=== PATIENT | male | born 1945 | race Caucasian/White ===

== ENCOUNTER 2019-01-22 09:46 | Day surgery (SDC) | payer MEDICARE, OTHER ==
[~2019-01-22 09:46] MED LIST: ACETAMINOPHEN 1,000 MG/100 ML BTL IV ONE; CEFAZOLIN 2 Gram 2 GM/50 ML BAG IVPB ONE
[2019-01-22] MEDS ORDERED: NEOSTIGMINE 1 MG/1 ML,10ML VIAL IV ONE (09:47)
[2019-01-22] MEDS ORDERED: EPINEPHRINE 1 MG/ML AMPUL SQ ONE (09:47)
[2019-01-22] MEDS ORDERED: KETOROLAC 30 MG/ML VIAL IVP ONE (09:47)
[2019-01-22] MEDS ORDERED: HYDROMORPHONE HCL 2 MG/ML VIAL IV ONE (09:47)
[2019-01-22] MEDS ORDERED: ONDANSETRON HCL IV 4 MG/2 ML VIAL IVP ONE (09:47)
[2019-01-22] MEDS ORDERED: SEVOFLURANE 250 ML INH ONE (09:47)
[2019-01-22] MEDS ORDERED: MIDAZOLAM HCL 2MG/2ML VIAL IV ONE (09:47)
[2019-01-22] MEDS ORDERED: LIDOCAINE 2% MDV (20MG/ML) 20ML VIAL IV ONE (09:47)
[2019-01-22] MEDS ORDERED: GLYCOPYRROLATE 0.2 MG/ML ML IV ONE (09:47)
[2019-01-22] MEDS ORDERED: SUCCINYLCHOLINE 20 MG/ML 10ML IVP ONE (09:47)
[2019-01-22] MEDS ORDERED: BUPIVACAINE LIPOSOME 266MG/20ML VIAL IV ONE (09:47)
[2019-01-22] MEDS ORDERED: PROPOFOL 10 MG/ML VIAL IV ONE (09:47)
[2019-01-22] MEDS ORDERED: ROCURONIUM BROMIDE 50MG/5ML VIAL IV ONE (09:47)
[2019-01-22] MEDS ORDERED: BUPIVACAINE 0.5% W/EPI MPF 30 ML VIAL IVP ONE (09:47)
[2019-01-22] MEDS ORDERED: FENTANYL PF 100MCG/2ML VIAL IV ONE (09:47)
--- NOTE | 2019-01-24 17:57 | Operative Note ---
DATE OF SURGERY: 01/22/2019 PREOPERATIVE DIAGNOSES: 1. RIGHT SHOULDER ROTATOR CUFF TEAR. 2. AC JOINT ARTHROSIS. POSTOPERATIVE DIAGNOSES: 1. RIGHT SHOULDER ROTATOR CUFF TEAR. 2. AC JOINT ARTHROSIS. 3. PARTIAL TEAR OF BICEPS TENDON. PROCEDURE: 1. DIAGNOSTIC ARTHROSCOPY. 2. ARTHROSCOPIC ACROMIOPLASTY WITH SUBACROMIAL DECOMPRESSION. 3. ARTHROSCOPIC EXCISION OF THE DISTAL CLAVICLE, AC JOINT 1 CM. 4. ARTHROSCOPIC ROTATOR CUFF REPAIR. 5. ARTHROSCOPIC BICEPS TENOTOMY. SURGEON: RIC HARDIN M.D. ANESTHESIA: GENERAL ENDOTRACHEAL, JOSELUIS, TISH. COMPLICATIONS: NONE. ESTIMATED BLOOD LOSS: MINIMAL. OPERATIVE FINDINGS: A large retracted rotator cuff tear involving the supraspinatus and infraspinatus tendons. Subscap tendon partial articular tearing only slight otherwise, intact. Biceps tendon partially frayed and torn. AC joint arthrosis. COMPONENTS PLACED: One [employer] 5.5 mm Regenesorb anchor loaded with two #2 Ultrabraid sutures and one [employer] MultiFix anchor loaded with the four suture limbs from the first anchor. INDICATION FOR OPERATIONS: This is a 73-year-old male who has had persistent pain and dysfunction in the shoulder actually for several years. He had an injury recently and it was weaker and very painful and he cannot raise his arm up. He had a preoperative ultrasound, which revealed a rotator cuff tear and is scheduled for the procedures above. I explained the risks and benefits thoroughly in detail for the diagnoses and procedures including but not limited to infection, nerve injury, vessel injury, persistent pain, stiffness, numbness and tingling in his shoulder, retear of his rotator cuff, need for further procedures, and all of his questions were answered. Rehab and course were outlined and he agreed to proceed. PROCEDURE: The patient was brought to the O.R. and placed in the beach chair position. Antibiotics were given prior to surgery. General endotracheal anesthesia was induced. The right upper extremity was prepped and draped in sterile fashion. Prepped again with ChloraPrep after draped and time-out was performed. The glenohumeral joint, subacromial space, and AC joint were injected with 0.5% Marcaine with Epinephrine. A posterior arthroscopic portal was established 2 cm inferior and 1 cm medial to the posterolateral corner of the acromion. An anterior portal was established with the rotator interval. Diagnostic arthroscopy was performed. The biceps tendon was partially torn and frayed. The biceps anchor was normal. The posterior superior labrum was normal. Axillary recess was normal. The posterior inferior labrum was normal. Glenohumeral head and articular cartilage were normal. The undersurface of the rotator cuff was thoroughly inspected. There was no cuff superiorly. It was retracted to the glenoid rim and the entire supraspinatus and infraspinatus tendons. There was some cuff anteriorly just at the interval and posteriorly at the infraspinatus/teres minor junction. The superior and middle glenohumeral ligaments were intact. Subscap tendons partial articular fraying although very slight, otherwise intact. Anterior inferior labrum and glenohumeral ligament looks normal. Next, we inserted the anterior portal and debrided back some synovitis and some of the scarring around the cuff edges and identified our tear. We did an intra- articular release with the tissue ablator and released no more than 1 cm medial to the glenoid rim to the base of the coracoid releasing the coracohumeral ligament. Next, the anterior posterior subacromial portals were established. The tissue ablator was inserted in the anterior subacromial portal. Subacromial bursectomy was performed outlining the anterior lateral edge of the acromion. We released the coracoacromial ligament and ultimately opened up the inferior AC joint capsule. Next, the lateral portal was established off the posterior margin of the AC joint. A tissue ablator was inserted there and the blade was reversed to perform a subacromial bursectomy. Next, we inserted the shaver and removed some of the bursa. Next, we inserted the bur and took off strips of bone working from lateral to medial, anterior to posterior, converting the type II acromion to a flat planar surface. We used a rasp to smooth the surface and verified it was flat with a probe from the posterior portal. Next, we inserted the bur in the anterior portal and burred down the medial acromial facet, resected the distal cuff 1 cm. We made a small stab incision superior to that and inserted the shaver and smoothed both bony surfaces verifying the AC joint was completely resected. Next, we established an accessory anterior lateral portal, identified the cuff. There was a large hole superiorly, basically no cuff here and it was retracted to the glenoid rim. We probed it with the use of the rotator cuff grasper. It was very stiff and had no excursion really medially, centrally. We could get the posterior flaps slightly over the top and bring it out anterolaterally. So, at this point, after thorough inspection, we planned to do at least a partial repair over predominantly the posterior cuff and we felt we might get margin convergence medially as well and that is what we did. We placed an anchor followed by a spinal off the acromial edge posteriorly at the greater tuberosity bone bed. Punch tapped. We inserted the anchor buried beneath the surface of bone. We passed all four limbs in a mattress fashion with cross-over 2 cm medial to the edge of the posterior flap repair. We then tied those down over the top using a taut-line hitch, sliding the knot and backed it up to reverse it on the post throws. Next, we loaded those on the MultiFix anchor more anteriorly now on greater tuberosity. We tucked down the posterior flap edge to the greater tuberosity. We punched the anchor in place, screwed it in, and tensioned the cuff reproducing its footprint nicely there. We still had a hole down the center, so we then tried margin convergence. We passed a #2 FiberWire suture in a [id number] fashion director of front office to anterior and tied it down over the top. This formed a ramm-tq-anse repair in the more medial portion of the cuff and actually closed that gap there medial to the articular margin. This was all we could repair at this point, at least a stable partial repair with what we had to work with. This completed our procedures. Scope and equipment were removed. The scope incisions were covered with Steri-Strips and the shoulder was bolused with 0.5% Marcaine with Epinephrine and Exparel. Sterile dressing. cc: Dr. Brianne Martinez JOB NUMBER: [id number] [facility]
== END 2019-01-22 15:30 | disposition home or self-care (01) ==
LOC: SUR 09:46
PROVIDERS: ATTEND Orthopaedic Surgery
DX: M75.101 Unspecified rotator cuff tear or rupture of right shoulder, not specified as traumatic (principal); S46.211A Strain of muscle, fascia and tendon of other parts of biceps, right arm, initial encounter; M19.011 Primary osteoarthritis, right shoulder; I10 Essential (primary) hypertension; M10.9 Gout, unspecified; G47.33 Obstructive sleep apnea (adult) (pediatric); Z87.442 Personal history of urinary calculi
CPT/HCPCS: 29827; 29824; 29822; 01630; J1885; J2405; J3010; J1170; J0690; C9290; C1713; J0171; J0330; J2710